=== PATIENT | female | born 1965 | race Caucasian/White ===

== ENCOUNTER 2017-09-27 10:40 | Emergency (ER) | payer MEDICAID ==
[2017-09-27] MEDS: morphine 4 MG/ML VIAL IM (15:35)
[2017-09-27] MEDS: KETOROLAC 60 MG INJ IM (15:35)
== END 2017-09-27 15:59 | disposition home or self-care (01) ==
LOC: FTE 10:40
DX: J20.9 Acute bronchitis, unspecified (principal); E11.9 Type 2 diabetes mellitus without complications
CPT/HCPCS: 96372; 99284-25; J1885